=== PATIENT | male | born 1990 | race Caucasian/White ===

== ENCOUNTER 2019-03-22 10:03 | Emergency (ER) | payer SELFPAY ==
--- NOTE | 2019-03-22 10:05 | ED.LOWEXIN ---
HPI - Extremity Injury (Lower) General Chief Complaint: Extremity Problem,Nontraumatic Stated Complaint: something is wrong with left ankle Time Seen by Provider: 03/22/19 10:04 Source: patient Mode of arrival: Ambulatory Limitations: no limitations History of Present Illness HPI Narrative: 29-year-old male nonsmoker with history of gout presents with left ankle pain in the absence of injury for the past few days. He admits to some swelling, redness and tenderness of his left ankle and is very certain he did not twisted or fall on it. He denies systemic findings such as fever, chills nor nausea or vomiting. He denies any red streaks trouble urinating or other. He states it feels and presents similar to prior episodes of gout. He had previously been prescribed allopurinol but it seemed to worsen things so he stopped taking in takes no other preventative medications. He does have indomethacin at home MD complaint: other Onset (ago): day(s) Severity: moderate Relieving factors: NSAID, immobilization and rest Exacerbating factors: weight bearing, movement and palpation Other symptoms: none Related Data Previous Rx's Medication Instructions Recorded colchicine 0.6 mg PO DAILY #14 tab 03/22/19 Allergies Allergy/AdvReac Type Severity Reaction Status Date / Time No Known Drug Allergies Allergy Verified 03/22/19 10:14 Review of Systems Constitutional Constitutional: Denies chills, Denies fatigue, Denies fever(s), Denies frequent falls, Denies lethargy and Denies weakness Eyes Eyes: Denies change in vision, Denies eye discharge, Denies irritation and Denies loss of vision ENT Ears, Nose, Mouth, and Throat: Denies change in voice, Denies dizziness, Denies neck pain, Denies sore throat and Denies throat swelling Cardiovascular Cardiovascular: Denies chest pain, Denies irregular heart rhythm, Denies lightheadedness, Denies palpitations, Denies dyspnea, Denies dyspnea on exertion and Denies orthopnea Respiratory Respiratory: Denies cough, Denies dyspnea, Denies dyspnea on exertion and Denies wheezing Gastrointestinal Gastrointestinal: Denies abdominal pain, Denies change in bowel habits, Denies diarrhea, Denies nausea and Denies vomiting Genitourinary Genitourinary: Denies hematuria, Denies flank pain, Denies urinary incontinence and Denies urinary urgency Musculoskeletal Musculoskeletal: Denies back pain, Reports joint swelling, Reports limited range of motion, Denies muscle weakness, Denies neck pain, Denies numbness and Denies tingling Integumentary/Breasts Skin/Breast: Denies pruritus, Reports erythema, Denies rash, Reports skin pain, Reports skin swelling and Denies wounds Neurologic Neurologic: Denies behavioral changes, Denies confusion, Denies dizziness, Denies frequent falls, Denies loss of vision, Denies numbness, Denies tingling and Denies weakness Psychiatric Psychiatric: Denies anxiety, Denies behavioral changes, Denies confusion, Denies depression, Denies homicidal ideation and Denies suicidal ideation Endocrine Endocrine: Denies fatigue, Denies flushing and Denies palpitations Hematologic/Lymphatic Hematologic/Lymphatic: Denies easy bruising Allergic/Immunologic Allergic/Immunologic: Denies urticaria, Denies throat swelling and Denies wheezing [facility] Social History Smoking Status: Never smoker Exam Narrative Exam Narrative: GEN: AOx3 and in mild distress EYES: Pupils are equal, round, and reactive to light and accommodation. Extraoccular muscles are intact bilaterally. There is no subconjunctival hemorrhage or exudate. CHEST: Lungs are clear to auscultation bilaterally and free of wheezes, rales, or rhonchi. Heart rate is regular rhythm, there are no murmurs, clicks, rubs, or gallops. There is no chest wall tenderness. ABD: Abdomen is soft and nontender. There is no guarding or rebound. Bowel sounds are normal in all 4 quadrants. There is no mass or organomegaly. EXT: Full but painful range of motion of left ankle with some erythema and warmth, no induration or fluctuance, no lymphangitis. SKIN: Left ankle warm and red, no other obvious skin involvement Initial Vital Signs Initial Vital Signs: Vital Signs Temperature 98.0 F 03/22/19 10:14 Pulse Rate 83 03/22/19 10:14 Respiratory Rate 18 03/22/19 10:14 Blood Pressure 167/92 H 03/22/19 10:14 Pulse Oximetry 100 03/22/19 10:14 Course Orders Ordered: ED Orders 03/22/19 10:53 C-Reactive Protein Quant Stat Complete Blood Count AUTO DIFF Stat Erythrocyte Sedimentation Rate Stat Discontinued Medications Colchicine (Colcrys) 1.2 mg PO NOW ONE Stop: 03/22/19 10:21 Last Admin: 03/22/19 10:46 Dose: 1.2 mg Documented by: JACK Vital Signs Vital signs: Vital Signs - 8 hr 03/22/19 10:14 Temperature 98.0 F Pulse Rate 83 Respiratory Rate 18 Blood Pressure 167/92 H Pulse Oximetry 100 MDM - Extremity Injury (Lower) Lab Data Result diagrams: 03/22/19 10:53 Labs: Lab Results 03/22/19 03/22/19 03/22/19 Range/Units 10:53 10:53 10:53 WBC 8.8 (4.5-11.0) X10^3/uL RBC 4.69 (4.5-5.9) X10^6/uL Hgb 14.6 (13.5-17.5) g/dL Hct 41.1 (41-53) % MCV 87.6 (80-100) fL MCH 31.2 (26-34) PG MCHC 35.6 (30-36) % RDW 12.9 (11.6-14.8) % Plt Count 196 (150-400) X10^3/uL Neut % (Auto) 71.8 (50-75) % Lymph % (Auto) 20.8 L (25-40) % [place] % (Auto) 6.9 (3-14) % Eos % (Auto) 0.2 L (2-4) % Baso % (Auto) 0.3 (0-2) % Neut # (Auto) 6300 (1550-0155) /uL Lymph # (Auto) 1800 (9266-9863) /uL [place] # (Auto) 600 (0-900) /uL Eos # (Auto) 0 (0-450) /uL Baso # (Auto) 0 (0-100) /uL ESR 14 (0-15) MM/HR C-Reactive Protein 2.1 H (<1.0) mg/dL Imaging Data Ankle Xray: Radiologist's impression: [address] [address] XRay Report Signed Patient: Steve Cleary JMR#: [id number] : 1990Acct:[id number] Age/Sex: MDate of Service: 03/22/19 Loc: ED Accession Number: [id number] Procedure: XR ankle LT min 3V Ordering Provider: Delio Chun D.O. PROCEDURE: XR ANKLE LT MIN 3V INDICATIONS: pain, swelling TECHNIQUE: 3 views of the ankle were acquired. COMPARISON: None. FINDINGS: Bones: Small curvilinear bony fragments adjacent to the medial malleolus are present. Ankle mortise is normally aligned. No suspicious bony lesions. Soft tissues: No tibiotalar joint effusion. Achilles tendon appears normal. IMPRESSION: Possible mildly displaced medial malleolus fracture. Dictated by: Robyn Kelsey M.D. on 03/22/2019 at 10:37 Approved by: Robyn Kelsey M.D. on 03/22/2019 at 10:37 [facility] Narrative Medical decision making narrative: 29-year-old male with history of gout, presents with left ankle pain in the absence of injury. He has mild swelling, redness and warmth. The findings are consistent with prior episodes of gout. X-ray does demonstrate the possibility of a mildly displaced medial malleolus fracture but this is not consistent with the exam or the history. Discharge Plan Departure Patient Disposition: Home Clinical Impression: Gout Qualifiers: Gout site: ankle Gout etiology: unspecified cause Chronicity: acute Laterality: left Qualified Code(s): M10.9 - Gout, unspecified Discharge Date/Time: 03/22/19 11:29 Instructions: DI for Gout Activity Restrictions/Additional Instructions: *You have been diagnosed with [gouty arthritis of left ankle] *What to do: *Take medications as directed *Follow up with your primary care provider in 2-3 days, call for an appointment. Let them know you were seen in the Emergency Department and that we ask that you be seen in follow up *Return to ER if you should have any new, worsening or concerning symptoms Prescriptions: New colchicine 0.6 mg tablet 0.6 mg PO DAILY Qty: 14 RF: 0
[2019-03-22 10:14] VITALS: BP 167/92; PULSE 83; RESP 18; TEMP 36.7; O2SAT 100; BMI 27.2
--- NOTE | 2019-03-22 10:20 | DI.RAD.S_ITS ---
PROCEDURE: XR ANKLE LT MIN 3V INDICATIONS: pain, swelling TECHNIQUE: 3 views of the ankle were acquired. COMPARISON: None. FINDINGS: Bones: Small curvilinear bony fragments adjacent to the medial malleolus are present. Ankle mortise is normally aligned. No suspicious bony lesions. Soft tissues: No tibiotalar joint effusion. Achilles tendon appears normal. IMPRESSION: Possible mildly displaced medial malleolus fracture. Dictated by: Robyn Kelsey M.D. on 03/22/2019 at 10:37 Approved by: Robyn Kelsey M.D. on 03/22/2019 at 10:37
[2019-03-22] MEDS: COLCHICINE 0.6 MG TABLET 1.2 MG PO (10:46)
[2019-03-22 11:00] LABS: Add Manual Diff / Slide Review NO; Basophils Absolute Auto 0 /uL (0-100); Basophils Percent Auto 0.3 % (0-2); Eosinophils Absolute Auto 0 /uL (0-450); Eosinophils Percent Auto 0.2 % (2-4); Hematocrit 41.1 % (41-53); Hemoglobin 14.6 g/dL (13.5-17.5); Lymphocytes Absolute Auto 1800 /uL (1100-4500); Lymphocytes Percent Auto 20.8 % (25-40); Mean Corpuscular HGB Conc 35.6 % (30-36); Mean Corpuscular Hemoglobin 31.2 PG (26-34); Mean Corpuscular Volume 87.6 fL (80-100); Monocytes Absolute Auto 600 /uL (0-900); Monocytes Percent Auto 6.9 % (3-14); Neutrophils Absolute Auto 6300 /uL (1500-7000); Neutrophils Percent Auto 71.8 % (50-75); Platelet Count 196 X10^3/uL (150-400); Red Blood Cell Count 4.69 X10^6/uL (4.5-5.9); Red Cell Distribution Width 12.9 % (11.6-14.8); White Blood Cell Count 8.8 X10^3/uL (4.5-11.0)
[2019-03-22 11:17] LABS: C-Reactive Protein Quant 2.1 mg/dL (<1.0)
[2019-03-22 11:21] VITALS: BP 148/89; PULSE 87; RESP 18; O2SAT 99
[2019-03-22 11:24] LABS: Erythrocyte Sedimentation Rate 14 MM/HR (0-15)
== END 2019-03-22 11:29 | disposition home or self-care (01) ==
PROVIDERS: Emergency Provider Emergency Medicine
DX: M10.9 Gout, unspecified (principal)
CPT/HCPCS: 36415; 73610; 85025; 85651; 86140; 99282; 99284